=== PATIENT | female | born 1995 | race Caucasian/White ===

== ENCOUNTER 2024-02-23 12:49 | Outpatient (CLI) | payer BC, SELFPAY ==
--- NOTE | ~2024-02-23 | US_ITS ---
EXAMINATION: US breast RT limited HISTORY: Palpable right subareolar mass TECHNIQUE: High resolution limited right breast ultrasound was performed. COMPARISON: None FINDINGS: At the 12:00 right breast subareolar region, there is an 8 x 5 x 6 mm homogeneous hypoechoic solid ma ss with mild posterior through-transmission. Mass is wider than tall with circumscribed borders. IMPRESSION: 8 x 5 x 6 mm solid mass at the 12:00 right breast subareolar region, as detailed above. Imaging frederic acteristics are most consistent with benign lesion, and given patient age, this is most likely a fibr oadenoma. Given the presence of a solid palpable mass however, biopsy should be considered, as neopla sm cannot be completely excluded based on imaging alone. As this lesion is of relatively low suspici on overall, six-month follow-up ultrasound to assure stability would be a reasonable alternative cons ideration. BI-RADS category 4, suspicious findings. Reviewed, dictated and finalized at location M. IMPRESSION: 8 x 5 x 6 mm solid mass at the 12:00 right breast subareolar region, as detail ed above. Imaging characteristics are most consistent with benign lesion, and g iven patient age, this is most likely a fibroadenoma. Given the presence of a s olid palpable mass however, biopsy should be considered, as neoplasm cannot be completely excluded based on imaging alone. As this lesion is of relatively lo w suspicion overall, six-month follow-up ultrasound to assure stability would b e a reasonable alternative consideration. BI-RADS category 4, suspicious findings.
== END 2024-02-23 12:50 | disposition home or self-care (01) ==
PROVIDERS: PCP Obstetrics & Gynecology; Visit Provider Obstetrics & Gynecology
DX: N63.41 Unspecified lump in right breast, subareolar (principal)
CPT/HCPCS: 76642

== ENCOUNTER 2024-05-21 13:20 | Outpatient (CLI) | payer OTHER, SELFPAY ==
--- NOTE | ~2024-05-21 | US_ITS ---
EXAMINATION TYPE: US breast RT limited COMPARISON: 02/23/2024 REASON FOR STUDY: R92.8 - Other abnormal and inconclusive findings on diagn... TECHNIQUE: Targeted sonographic evaluation of the right breast was performed. INTERPRETATION: At the 12:00 right subareolar region, there is a stable 0.7 x 0.5 x 0.6 cm circumscribed, wider than tall, hypoechoic homogeneous mass. There is posterior through transmission. IMPRESSION: Stable ovoid subcentimeter hypoechoic mass in the right subareolar region, probably benign, likely sm all fibroadenoma. Additional six-month follow-up recommended to assure continued stability. BI-RADS CATEGORY: BI-RADS 3: Probably benign Reviewed, dictated and finalized at location M. IMPRESSION: Stable ovoid subcentimeter hypoechoic mass in the right subareolar region, prob ably benign, likely small fibroadenoma. Additional six-month follow-up recommen ded to assure continued stability. BI-RADS CATEGORY: BI-RADS 3: Probably benign
== END 2024-05-21 13:21 | disposition home or self-care (01) ==
PROVIDERS: PCP Obstetrics & Gynecology; Visit Provider Surgery
DX: R92.8 Other abnormal and inconclusive findings on diagnostic imaging of breast (principal); N63.10 Unspecified lump in the right breast, unspecified quadrant
CPT/HCPCS: 76642

== ENCOUNTER 2024-11-26 09:23 | Outpatient (CLI) | payer OTHER, SELFPAY ==
--- NOTE | ~2024-11-26 | US_ITS ---
EXAMINATION: US breast RT limited HISTORY: 29-year-old woman presents for diagnostic follow-up of a (likely) fibroadenoma within the [facility] breast High resolution focused right breast ultrasound was performed. COMPARISON: Reference is made to previous ultrasound dated 05/21/2024 and 02/23/2024 FINDINGS: ULTRASOUND: At the 12:00 position of the right breast within the subareolar position is a well-circumscribed focu s of decreased echogenicity measuring 7.8 x 5.0 x 6.9 mm. This focus demonstrates increased through t ransmission and is without vascularity, unchanged from prior. IMPRESSION: Stable findings within the 12:00 position of the right breast, as detailed above. 6 month follow-up ultrasound is recommended until 2 years of sonographic stability has been confirmed . BI-RADS category 3, probably benign findings. Reviewed, dictated and finalized at location A. IMPRESSION: Stable findings within the 12:00 position of the right breast, as detailed abov e. 6 month follow-up ultrasound is recommended until 2 years of sonographic stabil ity has been confirmed. BI-RADS category 3, probably benign findings.
== END 2024-11-26 09:24 | disposition home or self-care (01) ==
LOC: ANHIMG 09:28
PROVIDERS: PCP Obstetrics & Gynecology; Visit Provider Surgery
DX: R92.8 Other abnormal and inconclusive findings on diagnostic imaging of breast (principal); N63.15 Unspecified lump in the right breast, overlapping quadrants
CPT/HCPCS: 76642

== ENCOUNTER 2025-04-01 13:26 | Outpatient (CLI) | payer OTHER, SELFPAY ==
--- NOTE | ~2025-04-01 | US_ITS ---
US breast RT limited 04/01/2025 13:42 Indication: Follow-up right breast mass Procedure: High-resolution Limited ultrasound of the right breast Comparison: Comparison to multiple prior studies sequentially, with oldest reviewed study dated 02/22. Findings: Stable oval parallel oriented hypoechoic circumscribed mass with enhanced through transmiss ion and no internal vascularity measuring 7 x 7 x 5 mm compared with 8 x 6 x 5 mm on 02/23/2024. Impression: 1: Stable likely benign right breast mass located at 12:00 in the subareolar location measuring 7 mm maximum dimension. BI-RADS CATEGORY 3-PROBABLY BENIGN FINDING RECOMMENDATION: 12 month follow-up Limited right breast ultrasound recommended. Reviewed, dictated and finalized at location B. Impression: 1: Stable likely benign right breast mass located at 12:00 in the subareolar lo cation measuring 7 mm maximum dimension. BI-RADS CATEGORY 3-PROBABLY BENIGN FINDING RECOMMENDATION: 12 month follow-up Limited right breast ultrasound recommended.
== END 2025-04-01 13:27 | disposition home or self-care (01) ==
LOC: ANHIMG 13:30
PROVIDERS: PCP Obstetrics & Gynecology; Visit Provider Surgery
DX: N63.41 Unspecified lump in right breast, subareolar (principal)
CPT/HCPCS: 76642